=== PATIENT | female | born 2000 | race African-American/Black ===

== ENCOUNTER 2022-12-22 21:58 | Outpatient (REF) | payer MEDICAID, SELFPAY ==
[2022-12-27 12:10] LABS: Age Gdln ACOG Testing Note (.); IGP, rfx Aptima HPV ASCU Note (.)
== END 2022-12-22 21:59 | disposition home or self-care (01) ==
LOC: LAB 21:58
PROVIDERS: Visit Provider Physician Assistant
DX: Z01.419 Encounter for gynecological examination (general) (routine) without abnormal findings (principal)
CPT/HCPCS: G0145

== ENCOUNTER 2024-04-11 19:51 | Outpatient (REF) | payer MEDICAID, SELFPAY ==
[2024-04-18 13:08] LABS: Age Gdln ACOG Testing Note (.); IGP, rfx Aptima HPV ASCU Note (.)
== END 2024-04-11 19:52 | disposition home or self-care (01) ==
LOC: LAB 19:51
PROVIDERS: PCP Nurse Practitioner Family; Visit Provider Physician Assistant
DX: Z01.419 Encounter for gynecological examination (general) (routine) without abnormal findings (principal)
CPT/HCPCS: 88175